=== PATIENT | female | born 1965 | race Caucasian/White ===

== ENCOUNTER 2023-07-02 10:06 | Emergency (ER) | payer MEDICAID ==
[~2023-07-02] VITALS: Ht 167.6 cm; Wt 99.8 kg
[2023-07-02 10:24] VITALS: BP 121/79; PULSE 94; RESP 18; TEMP 98; O2SAT 98
[2023-07-02] MEDS ORDERED: MORPHINE SULFATE 4 MG/ML SYR IM ONE (11:05)
[2023-07-02 11:43] LABS: BASOPHILS % (AUTO) 0.6 % (0.0-2.0); EOSINOPHILS # (AUTO) 0.3 K/uL (0-0.4); EOSINOPHILS % (AUTO) 3.4 % (0.0-4.0); HEMOGLOBIN 13.8 g/dL (12.0-16.0); LYMPHOCYTES # (AUTO) 1.9 K/uL (2.5-16.5); LYMPHOCYTES % (AUTO) 24.3 % (20.5-51.1); MEAN CORPUSCULAR HEMOGLOBIN 30 pg (27-31); MEAN CORPUSCULAR HGB CONC 34 g/dL (33-37); MEAN CORPUSCULAR VOLUME 87.7 fL (80-94); MONOCYTES # (AUTO) 0.5 K/uL (0.8-1.0); MONOCYTES % (AUTO) 5.8 % (1.7-9.3); NEUTROPHILS # (AUTO) 5.2 K/uL (1.8-7.7); NEUTROPHILS % (AUTO) 65.9 % (42.2-75.2); PLATELET COUNT (AUTO) 292 K/uL (140-450); RED BLOOD CELL COUNT(AUTO) 4.67 MIL/uL (4.20-5.40); RED CELL DISTRIBUTION WIDTH 13.7 % (11.6-13.7); WHITE BLOOD COUNT (AUTO) 7.9 K/uL (4.8-10.8)
[2023-07-02 11:54] LABS: ALBUMIN 3.5 g/dL (3.4-5.0); ANION GAP 13.2 (8-16); CALCIUM 8.4 mg/dL (8.5-10.1); CARBON DIOXIDE 24.3 mmol/L (21-32); CREATININE 1.3 mg/dL (0.6-1.3); POTASSIUM 3.5 mmol/L (3.5-5.1); TOTAL BILIRUBIN 0.6 mg/dL (0.0-1.0)
[2023-07-02 12:04] LABS: LACTIC ACID 2.7 mmol/L (0.4-2.0)
[2023-07-02 12:15] LABS: INR 0.94 (0.8-1.2); PARTIAL THROMBOPLASTIN TIME 26.4 secs (22-35.6); PROTHROMBIN TIME 9.9 secs (10.8-13.4)
[2023-07-02] MEDS ORDERED: CEPH-588 PO (13:10)
[2023-07-02] MEDS ORDERED: IBUP-2213 PO (13:10)
[2023-07-02] MEDS ORDERED: ACET-9527 PO ×2 (13:10→13:13)
[2023-07-02 13:45] VITALS: BP 121/79; PULSE 94; RESP 18; TEMP 98; O2SAT 98
== END 2023-07-02 13:45 | disposition home or self-care (01) ==
LOC: MED 10:06
DX: S80.12XA Contusion of left lower leg, initial encounter (principal); R60.9 Edema, unspecified; L03.116 Cellulitis of left lower limb; W18.30XA Fall on same level, unspecified, initial encounter; Y93.89 Activity, other specified; Y92.89 Other specified places as the place of occurrence of the external cause; Y99.8 Other external cause status
CPT/HCPCS: 36415; 73590; 80053; 83605; 85025; 85610; 85730; 93971; 96372; 99285; J2270; Q0092